=== PATIENT | male | born 1995 | race Two or more races ===

== ENCOUNTER 2023-04-25 05:36 | Emergency (ER) | payer OTHER ==
[~2023-04-25] VITALS: Ht 162.6 cm; Wt 66.2 kg
== END 2023-04-25 13:49 | disposition home or self-care (01) ==
LOC: ER 05:36
DX: K52.89 Other specified noninfective gastroenteritis and colitis (principal); F41.9 Anxiety disorder, unspecified; Z88.8 Allergy status to other drugs, medicaments and biological substances